=== PATIENT | male | born 1995 | race African-American/Black ===

== ENCOUNTER → 2022-02-01 | Outpatient (CLI) | payer OTHER | LOC: M RAD 12:55 | PROVIDERS: ATTEND Nurse Practitioner Family | DX: M79.642 Pain in left hand (principal) ==

== ENCOUNTER 2022-03-30 20:33 | Emergency (ER) | payer OTHER ==
[~2022-03-30] VITALS: Ht 182.9 cm; Wt 69.3 kg
[2022-03-30 21:52] LABS: HEMATOCRIT 50.1 % (42.0-52.0); HEMOGLOBIN 17.4 g/dl (13.5-17.5); MEAN CORPUSCULAR HEMOGLOBIN 30.6 pg (27.0-33.0); MEAN CORPUSCULAR HGB CONC 34.7 g/dl (32.0-36.5); PLATELET COUNT, AUTOMATED 151 10^3/uL (150-450); RED BLOOD COUNT 5.69 10^6/uL (4.30-6.10); WHITE BLOOD COUNT 6.8 10^3/uL (4.0-10.0)
[2022-03-30 22:05] LABS: INR 2.6; PROTHROMBIN TIME 28.3 SECONDS (12.5-14.5)
[2022-03-30 22:06] LABS: PARTIAL THROMBOPLASTIN TIME 33.4 SECONDS (24.8-34.2)
[2022-03-30 22:41] LABS: ALBUMIN 4.1 G/DL (3.2-5.2); ALKALINE PHOSPHATASE 111 U/L (46-116); ALT/SGPT 3502 U/L (7.0-40); AST/SGOT 1648 U/L (<34); BILIRUBIN,TOTAL 9.7 MG/DL (0.3-1.2); BLOOD UREA NITROGEN 17 MG/DL (9-23); CALCIUM LEVEL 9.2 MG/DL (8.5-10.1); CARBON DIOXIDE LEVEL 30 MMOL/L (20-31); CHLORIDE LEVEL 99 MMOL/L (98-107); CREATININE FOR GFR 1.33 MG/DL (0.70-1.30); GLOMERULAR FILTRATION RATE > 60.0 (>60); GLUCOSE, FASTING 92 MG/DL (60-100); POTASSIUM SERUM 4.4 MMOL/L (3.5-5.1); SODIUM LEVEL 138 MMOL/L (136-145); TOTAL PROTEIN 7.2 G/DL (5.7-8.2)
[2022-03-31] MEDS ORDERED: ACETYLCYSTEINE IV ONE ×2 (02:00→03:00)
[2022-03-31] MEDS ORDERED: D5W IV ONE ×2 (02:00→03:00)
[2022-03-31 02:13] LABS: RSV AMPLIFICATION NEGATIVE (NEGATIVE)
[2022-03-31 02:30] VITALS: BP 119/62
[2022-03-31 02:32] LABS: ETHYL ALCOHOL (ETHANOL) 0.003 % (0.000-0.010)
[2022-03-31 02:34] LABS: BILIRUBIN,DIRECT 2.7 MG/DL (<0.4)
[2022-03-31 02:36] LABS: ACETAMINOPHEN LEVEL < 2.0 UG/ML (10.0-20.0)
[2022-03-31 04:25] LABS: SALICYLATE LEVEL < 3.0 MG/DL (<30)
== END 2022-03-31 03:00 | disposition short-term general hospital (02) ==
LOC: M ED 20:33
DX: K72.90 Hepatic failure, unspecified without coma (principal); T39.1X1A Poisoning by 4-Aminophenol derivatives, accidental (unintentional), initial encounter; T45.0X1A Poisoning by antiallergic and antiemetic drugs, accidental (unintentional), initial encounter; R00.1 Bradycardia, unspecified; R11.2 Nausea with vomiting, unspecified; R82.998 Other abnormal findings in urine; R10.31 Right lower quadrant pain; M54.9 Dorsalgia, unspecified; G89.29 Other chronic pain; D55.0 Anemia due to glucose-6-phosphate dehydrogenase [G6PD] deficiency; Z88.6 Allergy status to analgesic agent
CPT/HCPCS: 80053; 80143; 82077; 82248; 85027; 85610; 85730; 87631; 93005; 93041; 94760; 96374; 99285; J0132

== ENCOUNTER → 2022-11-24 | Outpatient (REF) | LOC: M PLAIMG 11:44 | PROVIDERS: ATTEND Internal Medicine | DX: R06.02 Shortness of breath (principal); M54.50 Low back pain, unspecified ==